=== PATIENT | male | born 1990 | race Caucasian/White ===

== ENCOUNTER → 2025-01-18 | Outpatient (CLI) | payer OTHER ==
[2025-01-21 07:27] LABS: 11-NOR-9-CARBOXY-THC,URN,QUANT >500 ng/mL
== END ==
LOC: LAB SHORT 16:42 → LAB 16:42
PROVIDERS: Nurse Practitioner Obstetrics & Gynecology
DX: F90.2 Attention-deficit hyperactivity disorder, combined type (principal)
CPT/HCPCS: G0480

== ENCOUNTER 2025-03-11 12:05 | Inpatient (IN) | payer OTHER ==
[~2025-03-11] VITALS: Ht 182.9 cm; Wt 101.2 kg
[2025-03-11] MEDS ORDERED: NS 1,000 ML IV SCH (12:25)
[2025-03-11] MEDS ORDERED: LORazepam 2 MG/ML 1ML Injection IV ONE ×3 (12:25→14:40)
[2025-03-11 12:59] LABS: BASOPHILS ABSOLUTE AUTO 0.05 K/mm3 (0.00-0.23); BASOPHILS PERCENT AUTO 1 % (0-2); EOSINOPHILS ABSOLUTE AUTO 0.03 K/mm3 (0.00-0.68); EOSINOPHILS PERCENT AUTO 0 % (0-6); Hematocrit 44.2 % (37.0-53.0); IMMATURE GRAN ABSOLUTE AUTO 0.02 K/mm3 (0.00-0.10); IMMATURE GRAN PERCENT AUTO 0 % (0-1); LYMPHOCYTES PERCENT AUTO 8 % (21-46); MONOCYTES ABSOLUTE AUTO 0.61 K/mm3 (0.16-1.47); MONOCYTES PERCENT AUTO 7 % (4-13); Mean Corpuscular HGB 30.7 pg (26.0-34.0); Mean Corpuscular HGB Conc 33.9 g/dL (31.5-36.5); Mean Corpuscular Volume 90 fL (80-100); Mean Platelet Volume 10.2 fL (9.1-12.4); NEUTROPHILS ABSOLUTE AUTO 7.63 K/mm3 (1.96-9.15); NEUTROPHILS PERCENT AUTO 85 % (41-73); Platelet Count 393 K/mm3 (150-400); RDW Coefficient Variation 12.4 % (11.7-14.2); Red Blood Cell Count 4.89 M/mm3 (4.30-5.90); White Blood Cell Count 9.04 K/mm3 (4.00-11.30)
[2025-03-11 13:13] LABS: Ethanol (Alcohol), Blood, Med <3 mg/dL; Free Thyroxine 1.01 ng/dL (0.70-1.60); Salicylate 2.3 mg/dL (2.8-20.0)
[2025-03-11 13:34] LABS: Alanine Aminotransfer (ALT/SGP 23 U/L (12-78); Albumin, Blood 4.3 g/dL (3.4-5.0); Albumin/Globulin Ratio 1.2 (0.8-1.8); Alk Phos 112 U/L (50-136); Anion Gap 14 mmol/L (3-11); Aspartate Aminotrans (AST/SGOT 14 U/L (12-37); Bilirubin, Total 0.6 mg/dL (0.1-1.0); Blood Urea Nitrogen 16 mg/dL (8-24); Bun/Creatinine Ratio 14.4 (12.0-20.0); CO2, Blood 25 mmol/L (21-32); Calcium, Blood 9.3 mg/dL (8.5-10.1); Chloride, Blood 101 mmol/L (98-108); Creatinine, Blood 1.11 mg/dL (0.60-1.20); Globulin, Blood 3.6 g/dL (2.2-4.0); Glomerular Filtration Rate 90 (60-); Glucose, Blood 107 mg/dL (70-99); Potassium, Blood 4.7 mmol/L (3.5-5.5); Sodium, Blood 135 mmol/L (136-145); Total Protein, Blood 7.9 g/dL (6.4-8.2)
[2025-03-11 13:35] LABS: Acetaminophen, Random <2.0 ug/mL (10.0-30.0)
[2025-03-11 14:01] LABS: Source, Urine Clean Catch
[2025-03-11 14:04] LABS: Appearance, Urine Clear (Clear); Bilirubin, Urine Neg (Neg); Blood, Urine Neg (Neg); Color, Urine Yellow (P-Yellow); Glucose Qualitative, Urine Neg (Neg); Ketones, Urine Neg (Neg); Leukocyte Esterase, Urine Neg (Neg); Nitrite, Urine Neg (Neg); Protein, Urine 1+ (Neg); Specific Gravity, Urine 1.015 (1.003-1.022); Urobilinogen, Urine NORM (Normal)
[2025-03-11] MEDS ORDERED: GUANFACINE HCL E4 MG PO (14:11)
[2025-03-11] MEDS ORDERED: LOSARTAN POTASS25 M2 PO (14:11)
[2025-03-11] MEDS ORDERED: GABAPENTIN600 MG PO (14:11)
[2025-03-11] MEDS ORDERED: Hydroxyzine HCl50 MG (14:11)
[2025-03-11] MEDS ORDERED: OLANZAPINE5 M1 PO (14:11)
[2025-03-11 14:22] LABS: U Amphetamine Screen Not Detected; U Barbituate Screen Not Detected; U Benzodiazapine Screen Not Detected; U Buprenorphine Screen Not Detected; U Cannabinoids Screen DETECTED; U Cocaine Screen Not Detected; U Methadone Screen Not Detected; U Methamphetamine Screen Not Detected; U Opiates Screen DETECTED; U Oxycodone Screen Not Detected; U Phencyclidine Screen Not Detected
[2025-03-11] MEDS ORDERED: LORazepam 2 MG/ML 1ML Injection IV PRN (16:15)
[2025-03-11] MEDS ORDERED: Labetalol HCL 5 MG/ML 4ML Injection (Single Dose) IV PRN (16:35)
--- NOTE | 2025-03-11 22:07 | NUR ---
ADMISSION NOTE: PT ARRIVED TO UNIT @ 2015 FROM ED. AOX4. ABLE TO MAKE NEEDS KNOWN TO STAFF. SI PRECUATIONS W/ HIGH RISK W/ 1:1 SITTER IN ROOM. PT DENIES SUICIDIAL OR HOMICIDIAL THOUGHTS WHEN ARRIVED TO UNIT. ON TELE NSR >60S. DENIES CP/PRESSURE. BREATHING EVEN AND UNLABORED, EDUCATED PULLMAN CONDUCTOR LIGHT USE WHEN NEEDING ASSISTANCE, BED AT LOWEST POSITION.
[2025-03-11 23:20] VITALS: BP 99/81
[2025-03-12 03:21] VITALS: BP 102/60
--- NOTE | 2025-03-12 05:38 | NUR ---
SHIFT SUMMARY PT AOX4, ABLE TO MAKE NEEDS KNOWN TO STAFF. 1:1 SITTER IN ROOM. ON TELE, NSR HRS 50-60S. DENIES CP/PRESSURE, BREATHING EVEN AND UNLABORED. IT WAS REPORTED PT TO HAVE SEIZURE LIKE ACTIVITY D/T OD, NO ACTIVITY NOTED THROUGHOUT SHIFT. PT C/O OF TROUBLE VOIDING AROUND 0400, BLADDER SCANNED SHOWED >800 ML URINE. STRAIGHT CATH PERFORMED W 980ML OUTPUT. SPOKE W/ POISON CONTROL, UPDATED W/PLAN ON OF CARE. CALL LIGHT WITHIN REACH, BED AT LOWEST POSITION.
--- NOTE | 2025-03-12 06:12 | NUR ---
REVIEWED AND AGREED WITH ALL COMPUTER EDUCATION PROFESSOR DOCUMENTATION
[2025-03-12 06:14] LABS: BASOPHILS ABSOLUTE AUTO 0.04 K/mm3 (0.00-0.23); BASOPHILS PERCENT AUTO 1 % (0-2); EOSINOPHILS PERCENT AUTO 2 % (0-6); Hematocrit 40.8 % (37.0-53.0); Hemoglobin 13.6 g/dL (13.5-17.5); IMMATURE GRAN ABSOLUTE AUTO 0.05 K/mm3 (0.00-0.10); IMMATURE GRAN PERCENT AUTO 1 % (0-1); LYMPHOCYTES ABSOLUTE AUTO 1.09 K/mm3 (0.84-5.20); LYMPHOCYTES PERCENT AUTO 16 % (21-46); MONOCYTES ABSOLUTE AUTO 0.66 K/mm3 (0.16-1.47); MONOCYTES PERCENT AUTO 10 % (4-13); Mean Corpuscular HGB 31.1 pg (26.0-34.0); Mean Corpuscular HGB Conc 33.3 g/dL (31.5-36.5); Mean Corpuscular Volume 93 fL (80-100); Mean Platelet Volume 10.1 fL (9.1-12.4); NEUTROPHILS ABSOLUTE AUTO 4.73 K/mm3 (1.96-9.15); NEUTROPHILS PERCENT AUTO 71 % (41-73); Platelet Count 251 K/mm3 (150-400); RDW Coefficient Variation 12.7 % (11.7-14.2); RDW Standard Deviation 43.8 fL (35.1-46.3); Red Blood Cell Count 4.38 M/mm3 (4.30-5.90); White Blood Cell Count 6.67 K/mm3 (4.00-11.30)
[2025-03-12 06:37] LABS: Albumin, Blood 3.7 g/dL (3.4-5.0); Albumin/Globulin Ratio 1.1 (0.8-1.8); Bilirubin, Total 1.2 mg/dL (0.1-1.0); Bun/Creatinine Ratio 13.7 (12.0-20.0); Calcium, Blood 8.5 mg/dL (8.5-10.1); Creatinine, Blood 1.02 mg/dL (0.60-1.20); Globulin, Blood 3.3 g/dL (2.2-4.0); Potassium, Blood 4.1 mmol/L (3.5-5.5)
[2025-03-12 07:29] VITALS: BP 111/72
[2025-03-12] MEDS ORDERED: Enoxaparin 40 MG/0.4 ML SYR SC SCH (09:00)
--- NOTE | 2025-03-12 09:47 | NUR ---
FAMILY UPDATE: PT MOM CAME TO VISIT TODAY. PT MOM WALKED OUT OF ROOM AND STATES "HE WILL PULL ONE OVER ON YOU, HE DOES IT EVERYTIME". MOM WAS EMOTIONAL AND STATING EVERYTHING SHE HAS DONE FOR PT AND HOW HE HAS TREATED HER. PT STATES THAT "SHE IS LYING" AND REQUESTED SHE DOESNT VISIT HIM. SHE THEN STATED SHE "WILL NOT BE COMING BACK". PT REQUESTED NO MORE VISITS FROM MOM, PT CHART UPDATED TO CONTACT DAD REGARDING ANY MEDICAL UPDATES.
[2025-03-12 12:11] VITALS: BP 130/71
[2025-03-12 15:16] VITALS: BP 119/66
--- NOTE | 2025-03-12 17:02 | NUR ---
SHIFT SUMMARY: PT A/OX4 T/O SHIFT. PLEASANT AND COOPERATIVE WITH CARE. PT ABLE TO VOID IND USING URINAL. REMAINED SINUS RYTHM 60'S T/O SHIFT. WILL REPORT TO [facility] NURSE.
[2025-03-12] MEDS ORDERED: ESCI20 PO (21:19)
[2025-03-12] MEDS ORDERED: BUPROPION HCL200 M2 PO (21:20)
[2025-03-14 21:22] LABS: AMITRIPTYLINE, QUANT, URN <100 ng/mL; CLOMIPRAMINE QUANT, URN <200 ng/mL; DESIPRAMINE QUANT, URN <100 ng/mL; DOXEPIN QUANT, URN <100 ng/mL; IMIPRAMINE QUANT, URN <100 ng/mL; NORCLOMIPRAMINE QUANT, URN <200 ng/mL; NORDOXEPIN QUANT, URN <100 ng/mL; NORTRIPTYLINE, QUANT, URN <100 ng/mL; PROTRIPTYLINE QUANT, URN <100 ng/mL
== END 2025-03-12 19:19 | disposition home or self-care (01) | DRG 918 ==
LOC: ER 12:05 → ERHOLD 15:49 → PCU 15:49 → BHU 03-12 16:16 → PCU 03-12 19:19
PROVIDERS: Emergency Medicine; ADMIT Internal Medicine
DX: T42.6X1A Poisoning by other antiepileptic and sedative-hypnotic drugs, accidental (unintentional), initial encounter (principal); E87.20 Acidosis, unspecified; T43.221A Poisoning by selective serotonin reuptake inhibitors, accidental (unintentional), initial encounter; T43.291A Poisoning by other antidepressants, accidental (unintentional), initial encounter; I10 Essential (primary) hypertension; F90.9 Attention-deficit hyperactivity disorder, unspecified type; F32.A Depression, unspecified; F41.9 Anxiety disorder, unspecified; F43.10 Post-traumatic stress disorder, unspecified; R56.9 Unspecified convulsions; Z98.890 Other specified postprocedural states; Z91.51 Personal history of suicidal behavior; F17.290 Nicotine dependence, other tobacco product, uncomplicated
CPT/HCPCS: 36415; 80053; 80320; 84439; 84443; 85025; 93005; 93010; 96374; 96376; 99285-25; G0480; G0481; J1650; J2060; J7030

== ENCOUNTER 2025-03-12 16:28 | Inpatient (IN) | payer OTHER ==
[~2025-03-12] VITALS: Wt 100.1 kg
[~2025-03-12 16:28] MED LIST: GABAPENTIN600 MG PO; GUANFACINE HCL E4 MG PO; Hydroxyzine HCl50 MG; LOSARTAN POTASS25 M2 PO; OLANZAPINE5 M1 PO
[2025-03-12] MEDS ORDERED: Haloperidol Lactate Inj. 5 MG/ML Injection IM PRN (19:45)
[2025-03-12] MEDS ORDERED: Aluminum Hydroxide 320MG/5ML 473 ML PO PRN (19:50)
[2025-03-12] MEDS ORDERED: DiphenhydrAMINE HCl 50 MG Cap PO PRN (19:50)
[2025-03-12] MEDS ORDERED: Acetaminophen 325 MG TABLET PO PRN (19:50)
[2025-03-12] MEDS ORDERED: DiphenhydrAMINE HCl 50 MG/ML 1ML Vial IM PRN (19:50)
[2025-03-12] MEDS ORDERED: Calcium Carbonate 500 MG Tab Chew PO PRN (19:50)
[2025-03-12] MEDS ORDERED: OLANZapine ODT 10 MG Tab MM PRN (19:50)
[2025-03-12] MEDS ORDERED: Ondansetron 4 MG SoluTab MM PRN (19:50)
[2025-03-12] MEDS ORDERED: Polyethylene Glycol 3350 17 gm PO PRN (19:50)
[2025-03-12] MEDS ORDERED: TraZODone HCl 50 MG Tab PO PRN (19:55)
[2025-03-12] MEDS ORDERED: HydrOXYzine Pamoate 50 MG Cap PO PRN (19:55)
[2025-03-12] MEDS ORDERED: LORazepam 2 MG/ML 1ML Injection IM PRN (19:55)
[2025-03-12] MEDS ORDERED: LORazepam 2 MG Tab PO PRN (19:55)
[2025-03-12] MEDS ORDERED: Melatonin 3 MG Tab PO PRN (19:55)
[2025-03-12] MEDS ORDERED: Haloperidol 5 MG Tab PO PRN (19:55)
[2025-03-12] MEDS ORDERED: Ibuprofen 600 MG Tab PO PRN (20:00)
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
[2025-03-12 21:01] VITALS: BP 120/81
[2025-03-12] MEDS ORDERED: ESCI20 PO (21:19)
[2025-03-12] MEDS ORDERED: BUPROPION HCL200 M2 PO (21:20)
--- NOTE | 2025-03-13 04:10 | NUR ---
Patient arrived in the U shortly after shift change. A&OX4, pleasant and conversant with staff and peers. Ate snack after admission then went to bed. No active SI,HI or AVH at time of brief evening assessment. Has been sleeping well since approximately 0. Will continue close observation every 15 minutes for comfort and safety.
[2025-03-13 08:14] VITALS: BP 125/79
[2025-03-13] MEDS ORDERED: Losartan Potassium 25 MG Tab PO SCH (09:00)
[2025-03-13] MEDS ORDERED: Citalopram Hydrobromide 20 MG Tab PO SCH (09:00)
[2025-03-13] MEDS ORDERED: GuanFACINE HCl 1 MG Tab PO SCH (09:00)
[2025-03-13] MEDS ORDERED: Multivitamins 1 Tab PO SCH (09:00)
[2025-03-13] MEDS ORDERED: Nicotine 21 MG PATCH TOP ONE (10:45)
--- NOTE | 2025-03-13 17:41 | NUR ---
SHIFT SUMMARY PT A/O X4; PLEASANT AND COOPERATIVE WITH CARE. HE DENIES SI, HI, AND HALLUCINATIONS. HIS AFFECT IS DEPRESSED AND HE EXPRESSED SOME ANXIETY THIS MORNING. PT DISCUSSED HOME MEDICATIONS WITH THE DOCTOR. HE ATTENDS ALL [facility] ACTIVITIES. HE IS MONITORED VIA Q15 ROUNDING FOR SAFETY AND WELLNESS.
--- NOTE | 2025-03-13 19:39 | NUR ---
PHONE CALL WITH MOTHER: MOTHER PACO CALLED AT 1900 TO TALK ABOUT HER SON. SHE IS ON HIS CONTACT LIST. SHE WANTED [facility] TO KNOW THAT HE OFTEN TAKES FAR MORE PILLS THAN HIS DOSAGE, AND THAT HE THEN RUNS OUT OF PILLS QUICKLY AND THEN STEALS HERS. SHE HAS TO "SLEEP WITH MY NORCO UNDER ME" TO KEEP HIM AWAY FROM IT. SHE WOULD LIKE HIM TO GO FROM [facility] TO REHAB, AND STATES THAT HE HAD AGREED TO IT EARLIER. SHE STATES, "IF HE GOES TO REHAB, THEN HE HAS A HOME TO COME TO". SHE IS GOING TO TELEPHONE AGAIN TOMORROW EVENING FOR AN UPDATE.
[2025-03-13 20:43] VITALS: BP 118/72
--- NOTE | 2025-03-14 04:27 | NUR ---
SHIFT SUMMARY: PATIENT WAS IN BED RESTING WITH EYES CLOSED AT THE BEGINNING OF THE SHIFT. HE WAS EASILY AWAKENED AND SPOKE IN A POLITE MANNER TO RN. HE STATED THAT HE WILL "CALL MY MOM TOMORROW" AFTER RN TOLD HIM HIS MOTHER HAD CALLED. HE ACKNOWLEDGED THAT "SHE CARES, AND SHE WORKS HARD". HE DID PARTICIPATE IN SNACK AND WRAP UP GROUP AT 1999, AND WAS COMPLIANT WITH MEDICATION ADMINISTRATION. AFTER SNACK TIME, HE WENT BACK TO BED, AND WAS NOTED TO BE RESTING QUIETLY WITH EYES CLOSED AND RESPIRATIONS CONFIRMED FOR THE REMAINDER OF THE SHIFT. CONTINUING TO MONITOR FOR SAFETY WITH Q15 MINUTE CHECKS.
[2025-03-14 08:10] VITALS: BP 135/90
[2025-03-14] MEDS ORDERED: Nicotine 21 MG PATCH TOP SCH (09:00)
[2025-03-14] MEDS ORDERED: Nicotine Polacrilex 2 MG Gum PO PRN (09:15)
[2025-03-14] MEDS ORDERED: Gabapentin 300 MG Cap PO SCH (14:00)
--- NOTE | 2025-03-14 18:07 | NUR ---
SHIFT SUMMARY PT A/O X4; PLEASANT AND COOPERATIVE WITH CARE. HE DENIES SI, HI, AND HALLUCINATIONS. HIS AFFECT IS ANXIOUS AND HE REPORTED NOT FEELING WELL DUE TO NOT HAVING HIS GABAPENTIN. GABAPENTIN RESTARTED THIS SHIFT AND PT REPORTS THAT HE FEELS MUCH BETTER AND HIS NAUSEA IS SUBSIDING. HE IS ACTIVE ON THE [employer] AND HAS SPENT MOST OF THE DAY IN THE GROUP ROOM. HE CONTINUES TO BE MONITORED FOR WELLNESS AND SAFETY.
[2025-03-14 19:35] VITALS: BP 114/69
[2025-03-14] MEDS ORDERED: OLANZapine 10 MG Tab PO SCH (21:00)
--- NOTE | 2025-03-15 04:42 | NUR ---
SHIFT SUMMARY PATIENT RESTING IN HIS ROOM, UP FOR SNACK THEN BACK TO BED DENIES SI, HI, OR AVH. VERBALIZED THAT HE IS "SUPPER TIRED" COOPERATIVE WITH MEDICATIONS. APPEARS TO BE SLEEPING WELL T/O NIGHT RESP EVEN AND UNLABORED. CONTINUE TO MONITOR Q15MIN
[2025-03-15 07:56] VITALS: BP 139/91
[2025-03-15] MEDS ORDERED: Loratadine 10 MG Tab PO SCH (14:25)
--- NOTE | 2025-03-15 17:49 | NUR ---
SHIFT SUMMARY: PT ALERT, ORIENTED AND COOPERATIVE WITH CARE. PT DENIED SI, HI AND AVH. PT DISCUSSED FEELING LIKE HE HAD BEEN IN WITHDRAWL FROM NOT HAVING HIS GABPENTIN AND STATS THAT HE IS FEELING BETTER TODAY. PT REQUESTED SOMETHING FOR ALLERGIES AND ITCHING EYES. PROVIDER CONTACTED, NEW ORDERS OBTAINED AND PT MEDICATED PER ORDERS. PT MOTHER AND FATHER CALLED TO CHECK ON HIM. MESSAGES GIVEN TO PT, HE STATED HE WASN'T SURE IF HE WOULD CALL THEM BACK.
[2025-03-15 20:38] VITALS: BP 101/56
--- NOTE | 2025-03-16 04:13 | NUR ---
Patient is alert and oriented times 4. stayed in his room during snack and didn't come out again overnight. Earlier in the evening, c/o 5/10 bilateral knee pain. Ibuprophen was given with good relief. So far, patient has slept well t hrough the night. Denies SI,HI and AVTH at time of evening assessment. Will continue to monitor every 15 minutes for safety and comfort.
[2025-03-16 08:06] VITALS: BP 104/74
--- NOTE | 2025-03-16 17:02 | NUR ---
SHIFT SUMMARY PT AxOx4. PLEASANT AND COOPERATIVE WITH CARE. PT HAS BEEN FOLLOWING TREATMENT PLAN THIS SHIFT INCLUDING TAKING MEDICATIONS PRESCRIBED, ATTENDING ALL [place] THERAPY GROUPS AND MINGLING APPROPRIATELY WITH STAFF/PEERS. PT DENIES SI/HI AVTH THIS SHIFT AND REPORTS FEELING READY FOR EXPECTED DC TOMORROW. PT IS USING PHONE AT THIS TIME TO SECURE REAL ESTATE SALESPERSON/TRANSPORTATION FROM HIS UNCLE TOMORROW. HE DENIED ANY NEEDS AT THIS TIME.
[2025-03-16 20:00] VITALS: BP 122/76
--- NOTE | 2025-03-17 04:23 | NUR ---
SHIFT SUMMARY: PATIENT WAS IN HIS ROOM RESTING ON HIS BED, BUT AWAKE, AT THE BEGINNING OF THE SHIFT. HE STATED THAT HE HAD "A GOOD DAY." HE STATED, "I'M EXCITED ABOUT DISCHARGE TOMORROW, BUT I HOPE IT GOES ALL RIGHT." HE DENIED SUICIDAL IDEATION OR THOUGHTS OF SELF HARMING. HE STATED THAT HE NOW HAS "COPING SKILLS TO USE". HE PARTICIPATED IN SNACK AND WRAP UP GROUP AT 2000 IN THE DINING AREA. HE WAS COMPLIANT WITH EVENING MEDICATIONS, ASKING PERTINENT QUESTIONS. HE DISPLAYED A KNOWLEDGE OF HIS MEDICATIONS AND WHAT THEY ARE FOR. HE WENT TO BED SHORTLY AFTER MEDICATION ADMINISTRATION AND WAS NOTED TO BE RESTING QUIETLY IN BED WITH EYES CLOSED AND RESPIRATIONS CONFIRMED. HE AWOKE A FEW TIMES DURING THE NIGHT, BUT REMAINED IN BED AND WENT BACK TO SLEEP. CONTINUING TO MONITOR FOR SAFETY WITH Q15 MINUTE CHECKS.
[2025-03-17 08:10] VITALS: BP 150/95
[2025-03-17] MEDS ORDERED: GABA300 PO (10:57)
--- NOTE | 2025-03-17 11:14 | NUR ---
IMPORTANT DISCHARGE INFORMATION PATIENT WILL BE PICKED UP BY [facility] AT 2PM TODAY 03/17/25. HE WILL BE GOING TO [address] [place] [address]. FOLLOW UP MENTAL HEALTH APPOINTMENT: DR RIVERA 03/27/25 AT 2PM PCP FOLLOW UP/CHRIS AT [facility] IN [place]. JJ ON 03/18/25 AT 4:00PM. PHARMACY: [facility] [phone]
--- NOTE | 2025-03-17 12:52 | NUR ---
RN WENT OVER DISCHARGE INSTRUCTIONS WITH PATIENT. SAFETY PLAN COMPLETED WELL. PT VERBALIZED UNDERSTANDING OF DISCHARGE INSTRUCTIONS AND MEDICATIONS.
--- NOTE | 2025-03-17 13:14 | NUR ---
patient placed call to his mom, asking her to unlock or arrange for the house for rv be brought to him, so that he is able to get in when he is discharged at 2pm with transport.
== END 2025-03-17 14:10 | disposition home or self-care (01) | DRG 918 ==
LOC: BHU 16:28
PROVIDERS: ADMIT Psychiatry & Neurology Psychiatry
DX: T42.6X2A Poisoning by other antiepileptic and sedative-hypnotic drugs, intentional self-harm, initial encounter (principal); F90.9 Attention-deficit hyperactivity disorder, unspecified type; F15.10 Other stimulant abuse, uncomplicated; F11.10 Opioid abuse, uncomplicated; F13.10 Sedative, hypnotic or anxiolytic abuse, uncomplicated; F39 Unspecified mood [affective] disorder; F41.9 Anxiety disorder, unspecified; Z79.899 Other long term (current) drug therapy; X58.XXXA Exposure to other specified factors, initial encounter
CPT/HCPCS: A9270

== ENCOUNTER 2025-05-25 11:07 | Observation (INO) | payer OTHER ==
[~2025-05-25] VITALS: Ht 180.3 cm; Wt 103.0 kg
[~2025-05-25 11:07] MED LIST changes: +BUPROPION HCL200 M2 PO; +ESCI20 PO; +GABA300 PO
[2025-05-25] MEDS ORDERED: Ondansetron 4 MG SoluTab MM PRN (11:30)
[2025-05-25 12:13] LABS: BASOPHILS ABSOLUTE AUTO 0.04 K/mm3 (0.00-0.23); BASOPHILS PERCENT AUTO 0 % (0-2); EOSINOPHILS ABSOLUTE AUTO 0.02 K/mm3 (0.00-0.68); EOSINOPHILS PERCENT AUTO 0 % (0-6); Hematocrit 42.3 % (37.0-53.0); Hemoglobin 14.5 g/dL (13.5-17.5); IMMATURE GRAN ABSOLUTE AUTO 0.03 K/mm3 (0.00-0.10); IMMATURE GRAN PERCENT AUTO 0 % (0-1); LYMPHOCYTES ABSOLUTE AUTO 0.73 K/mm3 (0.84-5.20); LYMPHOCYTES PERCENT AUTO 7 % (21-46); MONOCYTES ABSOLUTE AUTO 0.59 K/mm3 (0.16-1.47); MONOCYTES PERCENT AUTO 5 % (4-13); Mean Corpuscular HGB Conc 34.3 g/dL (31.5-36.5); Mean Corpuscular Volume 91 fL (80-100); NEUTROPHILS ABSOLUTE AUTO 9.48 K/mm3 (1.96-9.15); NEUTROPHILS PERCENT AUTO 87 % (41-73); NRBC ABSOLUTE 0.00 K/mm3 (0.00-0.02); NRBC Auto 0.0 /100 WBC (0.0-0.2); Platelet Count 353 K/mm3 (150-400); RDW Coefficient Variation 12.4 % (11.7-14.2); RDW Standard Deviation 41.0 fL (35.1-46.3)
[2025-05-25 12:19] LABS: Source, Urine Clean Catch
[2025-05-25 12:26] LABS: Bilirubin, Urine Neg (Neg); Color, Urine Yellow (P-Yellow); Glucose Qualitative, Urine Neg (Neg); Ketones, Urine Neg (Neg); Leukocyte Esterase, Urine Neg (Neg); Protein, Urine 1+ (Neg); Specific Gravity, Urine 1.015 (1.003-1.022); Urobilinogen, Urine NORM (Normal)
[2025-05-25] MEDS ORDERED: GABA300 PO (12:30)
[2025-05-25 12:43] LABS: U Amphetamine Screen Not Detected; U Barbituate Screen Not Detected; U Benzodiazapine Screen Not Detected; U Buprenorphine Screen Not Detected; U Cannabinoids Screen DETECTED; U Cocaine Screen Not Detected; U Methadone Screen Not Detected; U Methamphetamine Screen Not Detected; U Opiates Screen DETECTED; U Oxycodone Screen Not Detected; U Phencyclidine Screen Not Detected
[2025-05-25 13:20] LABS: Alanine Aminotransfer (ALT/SGP 72 U/L (12-78); Albumin, Blood 4.4 g/dL (3.4-5.0); Albumin/Globulin Ratio 1.1 (0.8-1.8); Anion Gap 15 mmol/L (3-11); Aspartate Aminotrans (AST/SGOT 31 U/L (12-37); Bilirubin, Total 0.5 mg/dL (0.1-1.0); Blood Urea Nitrogen 15 mg/dL (8-24); CO2, Blood 26 mmol/L (21-32); Calcium, Blood 9.9 mg/dL (8.5-10.1); Chloride, Blood 101 mmol/L (98-108); Creatinine, Blood 0.96 mg/dL (0.60-1.20); Globulin, Blood 4.0 g/dL (2.2-4.0); Glucose, Blood 99 mg/dL (70-99); Potassium, Blood 4.3 mmol/L (3.5-5.5); Sodium, Blood 138 mmol/L (136-145); Total Protein, Blood 8.4 g/dL (6.4-8.2)
[2025-05-25 15:32] LABS: Salicylate <1.7 mg/dL (2.8-20.0)
[2025-05-25 16:50] LABS: Acetaminophen, Random <2.0 ug/mL (10.0-30.0)
[2025-05-28] MEDS ORDERED: GABA300 PO (11:05)
[2025-05-28] MEDS ORDERED: HYDPAM50 PO (11:07)
[2025-05-28] MEDS ORDERED: HYDHCL25 PO (11:39)
== END 2025-05-25 14:47 | disposition other institution (70) ==
LOC: ER 11:07 → EOR 11:34
PROVIDERS: ADMIT Emergency Medicine
DX: F43.25 Adjustment disorder with mixed disturbance of emotions and conduct (principal); R45.851 Suicidal ideations; F13.10 Sedative, hypnotic or anxiolytic abuse, uncomplicated; F11.10 Opioid abuse, uncomplicated; F39 Unspecified mood [affective] disorder; F90.9 Attention-deficit hyperactivity disorder, unspecified type; I10 Essential (primary) hypertension; Z63.8 Other specified problems related to primary support group; Z79.899 Other long term (current) drug therapy
CPT/HCPCS: 80053; 85025; 99285; G0378; G0480

== ENCOUNTER 2025-05-25 11:08 | Inpatient (IN) | payer OTHER ==
[~2025-05-25] VITALS: Ht 180.3 cm; Wt 101.8 kg
[2025-05-25] MEDS ORDERED: GABA300 PO ×2 (12:30)
[2025-05-25] MEDS ORDERED: Aluminum Hydroxide 320MG/5ML 473 ML PO PRN (14:35)
[2025-05-25] MEDS ORDERED: Polyethylene Glycol 3350 17 gm PO PRN (14:40)
[2025-05-25] MEDS ORDERED: DiphenhydrAMINE HCl 50 MG/ML 1ML Vial IM PRN (14:40)
[2025-05-25] MEDS ORDERED: Ondansetron 4 MG SoluTab MM PRN (14:40)
[2025-05-25] MEDS ORDERED: Haloperidol Lactate Inj. 5 MG/ML Injection IM PRN (14:45)
[2025-05-25 14:59] VITALS: BP 124/85
[2025-05-25 15:26] VITALS: BP 124/85
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
[2025-05-25 20:52] VITALS: BP 109/72
--- NOTE | 2025-05-26 04:11 | NUR ---
SHIFT SUMMARY PT LAYING IN BED, AWAKE AT START OF SHIFT. DENIES ANY CURRENT SI, HI OR AVTH. HE RATES HIS DEPRESSION AT 6/10. HE GOT OUT OF BED FOR EVENING SNACK AND WAS INTERACTIVE WITH STAFF AND PEERS. HE WAS COMPLIANT WITH MEDICATIONS AND RECEIVED PRN TRAZODONE AND MELATONIN. HE RETURNED TO HIS ROOM AFTER SNACK AND HAS REMAINED IN BED THROUGHOUT THE NIGHT. Q15 MINUTE CHECKS TO CONTINUE PER PT SAFETY/UNIT PROTOCOL.
[2025-05-26 07:14] VITALS: BP 116/65
[2025-05-26] MEDS ORDERED: Multivitamins 1 Tab PO SCH (09:00)
[2025-05-26 09:02] LABS: CHOL/HDL RATIO 4.9; Cholesterol 244 mg/dL (50-200); HDL Cholesterol 50 mg/dL (>39); LDL/HDL RATIO 3.5; Low Density Lipoprotein Chol 175 mg/dL (0-110); Triglycerides 95 mg/dL (30-140); Very Low Density Lipoprot Chol 19 mg/dL (6-28)
--- NOTE | 2025-05-26 16:47 | NUR ---
SHIFT SUMMARY PT A/O X4; PLEASANT AND COOPERATIVE WITH CARE. HE DENIES SI, HI, AVTH. PT ATTENDED ALL GROUPS, MEALS, AND MILEU ACTIVITIES THIS SHIFT. PT'S MOTHER AND FATHER BOTH CALLED THIS SHIFT. NEITHER OF HIS PARENTS ARE ON HIS MALATHI PAPER, BUT PT IS OK WITH THEM KNOWING HIS IS IN THE [facility]. HOWEVER, PT REQUESTS THAT HIS PARENTS ARE NOT GIVEN ANY OTHER INFORMATION AND DOES NOT WISH TO SPEAK WITH THEM AT THIS TIME. HE CONTINUES TO BE MONITORED VIA Q15 ROUNDING FOR SAFETY AND WELLNESS.
[2025-05-26 19:48] VITALS: BP 98/50
--- NOTE | 2025-05-27 04:16 | NUR ---
SHIFT SUMMARY PT LAYING IN BED, AWAKE AT START OF SHIFT. HE DENIES ANY SI, HI, THOUGHTS OF SELF HARM OR AVTH. HE STATES THAT HE HAS HAD FLEETING MOMENTS OF SADNESS, BUT OVERALL IS FEELING BETTER. HE RATES HIS DEPRESSION AT 4/10. HE HAD EVENING SNACK, WAS COMPLIANT WITH MEDS. HE RECEIVED PRN TRAZODONE AND MELATONIN AND RETURNED TO BED AFTER SNACK. Q15 MINUTE CHECKS TO CONTINUE PER PT SAFETY/UNIT PROTOCOL.
[2025-05-27 08:32] VITALS: BP 142/78
--- NOTE | 2025-05-27 16:25 | NUR ---
SHIFT SUMMARY NO ACUTE EVENTS TODAY. PT DENIES SI, HI, AVTH. REQUESTED VISTARIL ONCE TODAY. WENT TO GROUPS, WATCHED TV/PLAYED CHESS IN [employer], AND ATE MEALS. INTERACTING W/ PT'S AND STAFF. ENDORSES FEELING "BETTER" SINCE BEING HERE.
[2025-05-27 20:09] VITALS: BP 104/59
--- NOTE | 2025-05-28 04:21 | NUR ---
SHIFT SUMMARY PT PRESENT IN MILIEU AT START OF SHIFT. HE IS MORE TALKATIVE THAN MY PREVIOUS SHIFTS. HE IS PLEASANT AND COOPERATIVE WITH CARE. HE DENIES ANY SI, HI, THOUGHTS OF SELF HARM OR AVTH. HE REPORTS POSSIBLE DISCHARGE ON SATURDAY AND STATES HE KNOWS THAT HE NEEDS TO CALL HIS MOTHER BUT IS CONCERNED IT WILL UPSET HIM. PT STATES HE WILL TRY TO CALL HER TODAY (SATURDAY). HE HAD EVENING SNACK, WAS COMPLIANT WITH MEDS AND RECEIVED PRN TRAZODONE AND MELATONIN. HE WENT TO BED AFTER SNACK AND HAS REMAINED THERE THROUGHOUT THE NIGHT. Q15 MINUTE CHECKS PER PT SAFETY/UNIT PROTOCOL.
[2025-05-28 08:45] VITALS: BP 120/80
--- NOTE | 2025-05-28 09:28 | NUR ---
SHIFT ASSESSMENT: PT DENIED SI, HI, AVH AND PHYSICAL PAIN. HE ENDORSED ANXIETY 3/10w AND DESCRIBED HIS MOOD NERVOUS. HIS AFFECT WAS CONGRUENT WITH HIS STATED MOOD. PT HAS BEEN OUT IN THE PT MILIEU THIS MORNING AND HAS BEEN COOPERATIVE WITH CARE.
[2025-05-28] MEDS ORDERED: GABA300 PO ×2 (11:05)
[2025-05-28] MEDS ORDERED: HYDPAM50 PO ×2 (11:07)
[2025-05-28] MEDS ORDERED: HYDHCL25 PO ×2 (11:39)
--- NOTE | 2025-05-28 12:42 | NUR ---
IMPORTANT DISCHARGE INFORMATION PATIENT TO BE DISCHARGED ON 05/29/25 AT 1PM ON SATURDAY. HE CURRENTLY WISHES TO BE TRANSPORTED TO THE [facility] [place]. [facility] WILL NEED TO BE CALLED AROUND 8AM FOR TRANSPORT. 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 HE WILL BE GOING TO THE "[place] [facility]" [address] [place] [address]. FOLLOW UP APPOINTMENTS WITH PCP DR. JJ [facility] ENCOURAGE FOLLOW UP WITH [facility] PHARMACY: [facility]
--- NOTE | 2025-05-28 15:46 | NUR ---
PT HAS ATTENDED GROUPS AND BEEN ACTIVE IN THE PT MILIEU. HE REPORTED THAT HE FEELS LIKE HIS "LIFE WILL IMPROVE SOON." HE WAS GIVEN TIMES AND DAYS OF AA MEETINGS AT THE "[facility]" IN [facility]. HE APPEARED TO BE EXCITED THAT THE MEETING PLACE IS CLOSE TO WHERE HE WILL BE STAYING.
--- NOTE | 2025-05-28 16:48 | NUR ---
PT HAS HAD 2 DOSES OF HYDROXYZINE 50MG FOR MASS SCORE OF 3 ONE AT 0831 AND 1459.
[2025-05-28 19:21] VITALS: BP 117/69
--- NOTE | 2025-05-29 04:11 | NUR ---
SHIFT SUMMARY PATIENT UP IN MILIEU VISITING WITH STAFF AND PEERS. VERBALIZED THAT HE IS A LITTLE BIT ANXIOUS BUT READY FOR THE "BIG CHANGES" COMING WITH DISCHARGE. PATIENT REQUESTING VISTARIL ALONG WITH HIS HS MEDICATIONS TO HELP WITH HIS ANXIETY. DENIES SI, HI, OR AVH. PATIENT APPEARS TO BE SLEEPING WELL T/O NIGHT RESP EVEN AND UNLABORED. CONTINUE TO MONITOR Q15MIN
[2025-05-29 07:46] VITALS: BP 122/82
--- NOTE | 2025-05-29 08:20 | NUR ---
CALL PLACED TO [facility] FOR TRANSPORTATION. RIDE SET TO PICK PATIENT UP AT 1300. TRANSPORT TO [facility] TO CORE DRILL OPERATOR HELPER RX AND THEN TO [facility].
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
--- NOTE | 2025-05-29 13:25 | NUR ---
PT DISCHARGE FROM UNIT. PT ALERT, ORIENTED AND COOPERTIVE. DENIED SI, HI AND AVH. EDUCATION PROVIDED ON DISCHARGE INSTRUCTION AND PT STATED CLEAR UNDERSTANDING. BELONGINGS RETURNED BY VIOLET STEVENS. PT AMBULATED OUT OF UNIT WITH DISCHARGE INSTRUCTIONS AND BELONINGS IN HAND.
== END 2025-05-29 13:25 | disposition home or self-care (01) | DRG 882 ==
LOC: BHU 11:08
PROVIDERS: ADMIT Psychiatry & Neurology Psychiatry
DX: F43.25 Adjustment disorder with mixed disturbance of emotions and conduct (principal); R45.851 Suicidal ideations; F90.9 Attention-deficit hyperactivity disorder, unspecified type; I10 Essential (primary) hypertension; F13.10 Sedative, hypnotic or anxiolytic abuse, uncomplicated; F11.10 Opioid abuse, uncomplicated; F39 Unspecified mood [affective] disorder; Z91.51 Personal history of suicidal behavior; Z56.0 Unemployment, unspecified; Z79.899 Other long term (current) drug therapy
CPT/HCPCS: 36415; 80061; 83036; A9270